=== PATIENT | female | born 1945 | race African-American/Black ===

== ENCOUNTER 2023-03-03 12:27 | Emergency (ER) | payer BC ==
[~2023-03-03] VITALS: Ht 167.6 cm; Wt 57.0 kg
[2023-03-03 12:51] VITALS: BP 141/75; PULSE 78; RESP 14; TEMP 98.3; O2SAT 98
== END 2023-03-03 17:06 | disposition home or self-care (01) ==
LOC: ER 12:27
DX: R60.0 Localized edema (principal)
CPT/HCPCS: 93971; 99284